=== PATIENT | male | born 1950 | race Caucasian/White ===

== ENCOUNTER 2018-04-28 07:35 | Outpatient (CLI) | payer MEDICARE, BC, SELFPAY ==
[2018-04-28 09:45] LABS: ALT 37 U/L (12-78); AST 28 U/L (15-37); Albumin 4.2 g/dL (3.4-5.0); Alkaline Phosphatase 65 U/L (46-116); Anion Gap 7.6 mmol/L (3-11); BUN 24 mg/dL (7-18); Bilirubin, Total 0.6 mg/dL (0.2-1.0); CO2 30.4 mmol/L (21.0-32.0); CREATININE 1.09 mg/dL (0.70-1.30); Calcium 9.4 mg/dL (8.5-10.1); Chloride 102 mmol/L (98-107); Cholesterol 305 mg/dL (50-200); Glucose 115 mg/dL (70-100); HDL Cholesterol 66 mg/dL (40-60); LDL CHOLESTEROL 220 mg/dL (<100); Potassium 4.4 mmol/L (3.5-5.1); Sodium 140 mmol/L (136-145); Total Protein 7.3 g/dL (6.4-8.2); Triglyceride 116 mg/dL (30-150)
[2018-05-01 08:54] LABS: PSA, Diagnostic 2.3 ng/ml (0-4.5)
== END 2018-04-28 07:55 ==
PROVIDERS: PCP Internal Medicine; Visit Provider Internal Medicine
DX: R73.9 Hyperglycemia, unspecified (principal); E78.5 Hyperlipidemia, unspecified; R35.1 Nocturia; K21.9 Gastro-esophageal reflux disease without esophagitis; H53.9 Unspecified visual disturbance
CPT/HCPCS: 36415; 80053; 80061; 83721; 84153

== ENCOUNTER → 2018-07-07 08:50 | Outpatient (BNVA) | payer MEDICARE, BC, SELFPAY | PROVIDERS: PCP Internal Medicine; Referring Provider Internal Medicine; Visit Provider Physical Therapy Assistant | DX: Z12.11 Encounter for screening for malignant neoplasm of colon (principal) ==

== ENCOUNTER 2018-07-24 09:05 | Day surgery (SDC) | payer MEDICARE, BC, SELFPAY ==
--- NOTE | 2018-07-24 07:03 | W.PM.DSUDISC ---
Discharge Plan Disposition Patient Disposition: HOME Condition: Good Discharge Details Reason For Visit: Colon Cancer screening Attending Provider: Radha Coon Primary Care Provider: Liz Sahni Home Meds and New Rx's Prescriptions: Continued pyridoxine (vitamin B6) [Vitamin B-6] 200 MG tablet extended release 200 mg PO DAILY RF: 0 aspirin [Aspir-81] 81 MG tablet,delayed release (DR/EC) 81 mg PO DAILY RF: 0 cholecalciferol (vitamin D3) 1,000 UNIT tablet 1,000 unit PO DAILY RF: 0 glucosamine [id number] 1 EACH tablet 1 ea PO DAILY RF: 0 Discontinued bisacodyl [Dulcolax (bisacodyl)] 5 mg tablet,delayed release (DR/EC) 5 mg PO ONCE Qty: 4 RF: 0 polyethylene glycol 3350 17 gram/dose powder 255 g PO ONCE Qty: 255 RF: 0 Discharge Instructions Instructions: Colonoscopy (DC) Additional Instructions: Findings: Normal bowel Follow up: 10 years Please call if you develop: fevers >101.5 Nausea or Vomiting Abdominal pain that is not transient DAY SURGERY UNIT POST COLONOSCOPY INSTRUCTIONS 1. Because there will be medication in your system for the next 24 hours, you may feel a little sleepy. Your coordination will be affected. Therefore: a. Do not drive or operate dangerous equipment for 24 hours. b. Do not drink alcohol beverages for 24 hours (not even beer). c. Plan to go home and rest for the day. 2. Generally there are no restrictions on your activity after a day or so has gone by, but you may feel a bit fatigued for a few days. 3 After you arrive home you may have a light meal and return to a normal diet as you can tolerate it without feeling sick to your stomach. 4. After surgery, you may feel pain or discomfort. This should be only transient, but if it persists please contact your doctor. 5. If there are any questions regarding the findings of your procedure, please feel free to contact your doctor. 6. If you are unable to contact your doctor with a problem, contact the hospital at [phone]. 7. Continue all your regular medications unless directed otherwise. I understand the above instructions and have no questions. Signature of Patient or Responsible Adult Escort Date/Time Name of Responsible Adult Escort Signature of Nurse Date/Time Activity:: Activity as Tolerated Diet:: As Tolerated Discharge Orders Discharge Orders: Discharge Order (Routine); Ordered 07/24/18 Ordered By: Radha Coon DS: Diagnosis Discharge Diagnosis (1) S/P colonoscopy: Status: Acute
--- NOTE | 2018-07-24 07:04 | COLE_ITS ---
Date of service: 07/24/18 Time of Service: 10: Colonoscopy Report Date of procedure: 07/24/18 Pre-op diagnosis general: Colon Cancer screening Post-op diagnosis procedure note: same Procedure: Colonoscopy Surgeon: Radha Coon Anesthesia proc note operative: MAC (Clovis Hernandez, NIYA/ ASA 2) Estimated blood loss (mL): 0 Pathology: none sent Complications: None Disposition: same day Indications: Mr. Santana is a pleasant 67 year old male who was seen in the office for a screening colonoscopy. Her last colonoscopy was in 2004 and was normal. Risks, benefits and complications have been reviewed. Complications include but are not limited to bleeding, pain, perforation, missed small lesion/polyp, sore throat, aspiration and adverse reaction to the medications. Questions were entertained and answered to their satisfaction and they wished to proceed. No guarantees were given or implied. Prep: Miralax/Dulcolax Procedure Start Time: :27 Procedure End Time: 11:00 Retraction Time: 17 minutes Findings: Normal colon. very tortuous. Procedure Description: After informed consent was obtained the patient was taken to the procedure room and placed in a left decubitous position. Monitors were applied and a time out was done. The patients name, date of , procedure, allergies to medications and metal in their body was reviewed. The patient was then sedated. Once sedated and comfortable a rectal exam was done. External exam was normal. Internal exam revealed a normal sphincter tone and no palpable masses. The prostate felt smooth. The scope was then introduced and retro-flexed. No internal hemorrhoids were id entified. The scope was then advanced to the cecum with some difficulty due to tortuousity of the transverse and ascending colon. The TI and appendiceal orifice were identified. The prep was OK. There was some bile tinged liquid stool in the right colon. This was irrigated with 1L of NS. The scope was then slowly retracted over 17 minutes back into the rectum. There were no polyps and no diverticula. The scope was removed and the patient was woken up and taken back to Same day surgery in stable condition. The patient tolerated the procedure well and there were no immediate complications. Follow up: The patient should follow up in 10 years unless they develop changes in bowel habits or other new gastrointestinal complaints.
[2018-07-24 09:23] VITALS: BP 160/85; PULSE 53; RESP 16; TEMP 35.1; O2SAT 99
[2018-07-24] MEDS: Lactated Ringers 1,000 ML 80 ML IV (10:05)
[2018-07-24 11:31] VITALS: BP 120/67; PULSE 53; RESP 16; TEMP 36.6; O2SAT 96
== END 2018-07-24 12:04 | disposition home or self-care (01) ==
LOC: SUR 09:05
PROVIDERS: PCP Internal Medicine; Visit Provider Surgery
PROC: 0DJD8ZZ Inspection of Lower Intestinal Tract, Via Natural or Artificial Opening Endoscopic (ICD-10-PCS; CPT 45378; principal; 2018-07-24 11:45)
DX: Z12.11 Encounter for screening for malignant neoplasm of colon (principal)
CPT/HCPCS: G0121

== ENCOUNTER 2019-08-03 07:08 | Outpatient (CLI) | payer MEDICARE, BC, SELFPAY ==
[2019-08-03 07:38] LABS: Abs Immature Grans 0.02 k/cumm (0.0-0.09); Absolute Basophil Count 0.12 k/cumm (0.0-0.2); Absolute Lymphocyte Count 1.82 k/cumm (1.2-3.4); Absolute Monocyte Count 0.55 k/cumm (0.11-0.7); Absolute Neutrophil Count 2.98 k/cumm (1.2-6.7); Basophils % 2.1; Eosinophils % 1.8; HCT 44.1 % (40.0-50.0); HGB 15.2 g/dL (13.5-17.5); Immature Grans % 0.4 %; Lymphocytes % 32.6; Mean Corp. HGB Concentration 34.5 g/dL (32.0-36.0); Mean Corpuscular Volume 89.8 fL (80-95); Mean Platelet Volume 9.9 fL (8.0-11.0); Monocytes % 9.8; Neutrophils % 53.3; Platelet Count 268 x1000/uL (130-400); RBC 4.91 m/cumm (4.50-6.00); RBC Distribution Width 13.5 % (11.8-14.1); White Blood Cell Count 5.59 k/cumm (4.4-10.8)
[2019-08-03 08:30] LABS: ALT 48 U/L (16-63); AST 25 U/L (15-37); Albumin 4.2 g/dL (3.4-5.0); Alkaline Phosphatase 69 U/L (46-116); Anion Gap 8.5 mmol/L (3-11); BUN 17 mg/dL (7-18); Bilirubin, Total 0.6 mg/dL (0.2-1.0); CO2 28.5 mmol/L (21.0-32.0); CREATININE 1.06 mg/dL (0.70-1.30); Calcium 9.2 mg/dL (8.5-10.1); Calculated LDL 120 mg/dL (<100); Chloride 104 mmol/L (98-107); Cholesterol 197 mg/dL (<200); Glucose 114 mg/dL (74-106); HDL Cholesterol 53 mg/dL (40-60); Potassium 4.4 mmol/L (3.5-5.1); Sodium 141 mmol/L (136-145); Total Protein 7.3 g/dL (6.4-8.2); Triglyceride 120 mg/dL (<150)
[2019-08-06 11:21] LABS: PSA, Screening 2.3 ng/mL (0.0-4.5)
== END 2019-08-03 07:28 ==
PROVIDERS: PCP Internal Medicine; Visit Provider Internal Medicine
DX: E78.5 Hyperlipidemia, unspecified (principal); R35.1 Nocturia; R50.9 Fever, unspecified; Z12.5 Encounter for screening for malignant neoplasm of prostate
CPT/HCPCS: 36415; 80053; 80061; 84153; 85025

== ENCOUNTER 2020-04-30 03:07 | Outpatient (CLI) | payer MEDICARE, BC, SELFPAY ==
[2020-05-02 12:57] LABS: COVID-19 RT-PCR Result NEGATIVE (Negative)
== END 2020-04-30 03:27 ==
PROVIDERS: PCP Nurse Practitioner; Visit Provider Nurse Practitioner
DX: Z11.59 Encounter for screening for other viral diseases (principal)
CPT/HCPCS: U0003

== ENCOUNTER 2020-05-12 01:48 | Outpatient (CLI) | payer MEDICARE, BC, SELFPAY ==
[2020-05-12 08:13] LABS: Hemoglobin A1C 5.7 % (<5.7)
[2020-05-12 08:36] LABS: CREATININE 1.26 mg/dL (0.70-1.30); Calculated LDL 109 mg/dL (<100); Cholesterol 197 mg/dL (<200); Estimated GFR 57.08 (mL/min/1.73m2); HDL Cholesterol 47 mg/dL (40-60); Potassium 4.6 mmol/L (3.5-5.1); Triglyceride 208 mg/dL (<150)
== END 2020-05-12 02:08 ==
PROVIDERS: PCP Nurse Practitioner; Visit Provider Nurse Practitioner
DX: R73.03 Prediabetes (principal); E78.5 Hyperlipidemia, unspecified; I10 Essential (primary) hypertension; D44.7 Neoplasm of uncertain behavior of aortic body and other paraganglia
CPT/HCPCS: 36415; 80061; 82565; 83036; 84132

== ENCOUNTER 2020-11-03 04:48 | Outpatient (CLI) | payer MEDICARE, BC, SELFPAY ==
[2020-11-03 07:50] LABS: Hemoglobin A1C 5.8 % (<5.7)
[2020-11-03 17:21] LABS: PSA, Screening 1.7 ng/mL (0.0-4.5)
== END 2020-11-03 04:49 | disposition home or self-care (01) ==
LOC: LBO 04:48
PROVIDERS: PCP Nurse Practitioner; Visit Provider Nurse Practitioner
DX: R73.03 Prediabetes (principal); R35.1 Nocturia; Z79.01 Long term (current) use of anticoagulants
CPT/HCPCS: 36415; 84153; 83036

== ENCOUNTER 2021-06-08 03:43 | Outpatient (CLI) | payer MEDICARE, SELFPAY ==
[2021-06-08 08:55] LABS: Anion Gap 8.6 mmol/L (3-11); BUN 23 mg/dL (7-18); CO2 29.4 mmol/L (21.0-32.0); CREATININE 1.1 mg/dL (0.70-1.30); Calcium 9.4 mg/dL (8.5-10.1); Calculated LDL 105 mg/dL (<100); Chloride 103 mmol/L (98-107); Cholesterol 188 mg/dL (<200); Glucose 119 mg/dL (74-106); HDL Cholesterol 59 mg/dL (40-60); Potassium 4.7 mmol/L (3.5-5.1); Sodium 141 mmol/L (136-145); Triglyceride 123 mg/dL (<150)
== END 2021-06-08 03:44 | disposition home or self-care (01) ==
LOC: LBO 03:46
PROVIDERS: PCP Nurse Practitioner; Visit Provider Nurse Practitioner
DX: I10 Essential (primary) hypertension (principal)
CPT/HCPCS: 36415; 80048; 80061

== ENCOUNTER → 2021-10-13 18:49 | Outpatient (CLI) | payer MEDICARE, SELFPAY ==
--- NOTE | 2021-10-13 09:00 | DI.US_ITS ---
Exam(s) US LOWER EXTREMITY VENOUS RT EXAM: US LOWER EXTREMITY VENOUS RT CLINICAL HISTORY: r/o dvt, edema, R60.9 TECHNIQUE: Grayscale, color, and doppler imaging of the deep venous system of the right lower extrem ity was performed. COMPARISON: No exams were available for comparison FINDINGS: There is no evidence of intraluminal thrombus and there is normal compression and augmentation demons trated within the common femoral vein, femoral vein, and popliteal vein. In the ipsilateral calf the interrogated veins also exhibit normal compression/ augmentation properti es. The ipsilateral saphenofemoral junction is patent. IMPRESSION: 1. No evidence of DVT in the RIGHT lower extremity. 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 DATA REPOSITORY:
== END ==
PROVIDERS: PCP Nurse Practitioner; Visit Provider Nurse Practitioner
DX: R60.0 Localized edema (principal); M71.21 Synovial cyst of popliteal space [Baker], right knee
CPT/HCPCS: 93971

== ENCOUNTER 2022-06-07 03:28 | Outpatient (CLI) | payer MEDICARE, SELFPAY ==
[2022-06-07 09:01] LABS: HCT 42.7 % (40.0-50.0); HGB 14.2 g/dL (13.5-17.5); MCH 29.8 pg (27.0-33.0); MCHC 33.3 % (32.0-36.0); MCV 90 fL (80-95); MPV 9.5 fL (8.0-11.0); Platelet Count 305 10^3/uL (130-400); RBC 4.77 10^6/uL (4.36-5.78); RDW 12.4 % (11.8-14.1); RDW-SD 41.3 fL
[2022-06-07 10:14] LABS: ALT 37 U/L (16-63); AST 27 U/L (15-37); Albumin 4.3 g/dL (3.4-5.0); Alkaline Phosphatase 100 U/L (46-116); Anion Gap 8.4 mmol/L (3-11); BUN 19 mg/dL (7-18); Bilirubin, Total 0.4 mg/dL (0.2-1.0); CO2 27.6 mmol/L (21.0-32.0); CREATININE 1.2 mg/dL (0.70-1.30); Calcium 9.4 mg/dL (8.5-10.1); Calculated LDL 79 mg/dL (<100); Chloride 105 mmol/L (98-107); Cholesterol 158 mg/dL (<200); Estimated GFR 65.46 (mL/min/1.73m2); Glucose 120 mg/dL (74-106); HDL Cholesterol 63 mg/dL (40-60); Potassium 4.3 mmol/L (3.5-5.1); Sodium 141 mmol/L (136-145); Total Protein 7.9 g/dL (6.4-8.2); Triglyceride 80 mg/dL (<150)
[2022-06-07 23:00] LABS: PSA, Screening 1.7 ng/mL (<=4.5)
== END 2022-06-07 03:29 | disposition home or self-care (01) ==
PROVIDERS: PCP Nurse Practitioner Family; Visit Provider Nurse Practitioner Family
DX: E78.5 Hyperlipidemia, unspecified (principal); I10 Essential (primary) hypertension; I73.00 Raynaud's syndrome without gangrene; K21.9 Gastro-esophageal reflux disease without esophagitis; R73.03 Prediabetes; Z00.00 Encounter for general adult medical examination without abnormal findings; R60.0 Localized edema; R35.1 Nocturia; Z12.5 Encounter for screening for malignant neoplasm of prostate
CPT/HCPCS: 36415; 80053; 80061; 84153; 85027; 83036; 84443

== ENCOUNTER 2023-05-10 14:05 | Outpatient (CLI) | payer MEDICARE, SELFPAY ==
--- NOTE | 2023-05-10 09:15 | DI.RAD_ITS ---
Exam(s) XR SHOULDER RT COMPLETE 2+V EXAM: XR SHOULDER RT COMPLETE 2+V CLINICAL HISTORY: RIGHT SHOULDER PAIN. TECHNIQUE: 2D digital imaging was performed. Two views. COMPARISON: No exams were available for comparison FINDINGS: Exam somewhat limited by overlying clothing. BONES: No acute fracture is present. No bony destructive lesion is seen. JOINTS: No dislocation present. Glenohumeral joint space is maintained. AC joint not optimally seen . No obvious spurring. SOFT TISSUE: Normal. IMPRESSION: Somewhat limited exam. No acute abnormality. DATA REPOSITORY: RADIATION DOSE DELIVERED:
== END 2023-05-10 14:06 | disposition home or self-care (01) ==
LOC: DIORS 14:05
PROVIDERS: PCP Nurse Practitioner Family; Referring Provider Nurse Practitioner Family; Visit Provider Student in an Organized Health Care Education/Training Program
DX: M25.511 Pain in right shoulder (principal); M75.51 Bursitis of right shoulder
CPT/HCPCS: 20610; 99203; 73030; J1030

== ENCOUNTER 2023-06-07 04:03 | Outpatient (CLI) | payer MEDICARE, SELFPAY ==
[2023-06-07 16:11] LABS: Anion Gap 6.6 mmol/L (3-11); BUN 19 mg/dL (7-18); CO2 31.4 mmol/L (21.0-32.0); CREATININE 1.2 mg/dL (0.70-1.30); Calcium 9.4 mg/dL (8.5-10.1); Calculated LDL 82 mg/dL (<100); Chloride 104 mmol/L (98-107); Cholesterol 173 mg/dL (<200); Estimated GFR 65.06 (mL/min/1.73m2); Glucose 96 mg/dL (74-106); HDL Cholesterol 60 mg/dL (40-60); Potassium 4.2 mmol/L (3.5-5.1); Sodium 142 mmol/L (136-145); Triglyceride 157 mg/dL (<150)
== END 2023-06-07 04:04 | disposition home or self-care (01) ==
LOC: LBO 04:03
PROVIDERS: PCP Nurse Practitioner Family; Visit Provider Nurse Practitioner Family
DX: E78.5 Hyperlipidemia, unspecified (principal); I10 Essential (primary) hypertension; I73.00 Raynaud's syndrome without gangrene; K21.9 Gastro-esophageal reflux disease without esophagitis; R73.03 Prediabetes; Z00.00 Encounter for general adult medical examination without abnormal findings
CPT/HCPCS: 36415; 80048; 80061; 83036

== ENCOUNTER → 2023-08-09 08:37 | Outpatient (BNVA) | payer MEDICARE, SELFPAY | PROVIDERS: PCP Nurse Practitioner Family; Referring Provider Nurse Practitioner Family; Visit Provider Student in an Organized Health Care Education/Training Program | DX: M75.101 Unspecified rotator cuff tear or rupture of right shoulder, not specified as traumatic (principal); M75.51 Bursitis of right shoulder | CPT/HCPCS: 99213 ==

== ENCOUNTER → 2023-08-25 04:14 | Outpatient (CLI) | payer MEDICARE, SELFPAY ==
--- NOTE | 2023-08-25 06:30 | DI.MRI_ITS ---
Exam(s) MR UPPER JOINT RT WO EXAM: MR UPPER JOINT RT WO CLINICAL HISTORY: R SHOULDER PAIN,rt rotator cuff tear,bursitis,m75.51,m75.101. TECHNIQUE: Multiplanar multisequence MRI was performed. COMPARISON: CR XR SHOULDER RT COMPLETE 2+V from 05/10/2023 FINDINGS: BONES: There is no fracture or contusion pattern. JOINTS: Mild degenerative changes are seen at the acromioclavicular joint. There is thinning of the articular cartilage at the glenohumeral joint with joint space narrowing. TENDONS: Supraspinatus: There is tendinosis of the supraspinatus tendon without evidence of a full-thickness r otator cuff tear. Infraspinatus: Unremarkable. Subscapularis: Unremarkable. Teres Minor: Unremarkable. Biceps and [place]: Unremarkable. MUSCLES: There is mild fatty atrophy of the teres minor muscle. No evidence of a soft tissue mass is appreciated. GLENOID LABRUM: There is degeneration seen in the superior labrum. SOFT TISSUES: Unremarkable. LIGAMENTS: Unremarkable. OTHER: Subacromial and subdeltoid bursae are unremarkable. IMPRESSION: 1. Tendinosis of the supraspinatus tendon without evidence of a rotator cuff tear. 2. Degeneration of the superior labrum. 3. Mild fatty atrophy of the teres minor muscle. No evidence of a soft tissue mass. 4. Mild degenerative changes seen at the acromioclavicular joint in the humeral head. DATA REPOSITORY:
== END ==
PROVIDERS: PCP Nurse Practitioner Family; Visit Provider Student in an Organized Health Care Education/Training Program
DX: M75.101 Unspecified rotator cuff tear or rupture of right shoulder, not specified as traumatic (principal); M75.51 Bursitis of right shoulder
CPT/HCPCS: 73221

== ENCOUNTER → 2023-08-30 08:03 | Outpatient (BNVA) | payer MEDICARE, SELFPAY | PROVIDERS: PCP Nurse Practitioner Family; Referring Provider Nurse Practitioner Family; Visit Provider Psychiatry & Neurology Neurology | DX: G62.9 Polyneuropathy, unspecified (principal) | CPT/HCPCS: 99215 ==

== ENCOUNTER → 2023-08-31 08:47 | Outpatient (BNVA) | payer MEDICARE, SELFPAY | PROVIDERS: PCP Nurse Practitioner Family; Referring Provider Nurse Practitioner Family; Visit Provider Podiatrist | DX: L60.0 Ingrowing nail (principal); M79.671 Pain in right foot | CPT/HCPCS: 11750; 99203; 99214 ==

== ENCOUNTER → 2023-08-31 11:06 | Outpatient (BNVA) | payer MEDICARE, SELFPAY | PROVIDERS: PCP Nurse Practitioner Family; Referring Provider Nurse Practitioner Family; Visit Provider Student in an Organized Health Care Education/Training Program | DX: M19.011 Primary osteoarthritis, right shoulder (principal) | CPT/HCPCS: 99213 ==

== ENCOUNTER 2023-09-01 04:59 | Outpatient (CLI) | payer MEDICARE, SELFPAY ==
[2023-09-01 14:53] LABS: Vitamin B12 638 pg/mL (193-986)
[2023-09-02 12:30] LABS: Albumin 64.7 % (55.8-66.1); Albumin g/dL 4.8 g/dL (3.6-5.2); Total Protein 7.4 g/dL (6.3-8.2)
[2023-09-06 09:30] LABS: Pyridoxal 5-Phosphate (PLP), P 92 mcg/L (5-50)
== END 2023-09-01 05:00 | disposition home or self-care (01) ==
LOC: LBO 05:00
PROVIDERS: PCP Nurse Practitioner Family; Visit Provider Psychiatry & Neurology Neurology
DX: G62.9 Polyneuropathy, unspecified (principal)
CPT/HCPCS: 36415; 82607; 84165; 84207

== ENCOUNTER → 2023-09-21 13:11 | Outpatient (BNVA) | payer MEDICARE, SELFPAY | PROVIDERS: PCP Nurse Practitioner Family; Referring Provider Nurse Practitioner Family; Visit Provider Podiatrist | DX: L60.0 Ingrowing nail; M79.671 Pain in right foot; B35.3 Tinea pedis; L84 Corns and callosities | CPT/HCPCS: 99214 ==

== ENCOUNTER 2024-01-05 01:53 | Outpatient (CLI) | payer MEDICARE, SELFPAY ==
[2024-01-10 13:20] LABS: Pyridoxal 5-Phosphate (PLP), P 24 mcg/L (5-50)
== END 2024-01-05 01:54 | disposition home or self-care (01) ==
PROVIDERS: PCP Nurse Practitioner Family; Visit Provider Psychiatry & Neurology Neurology
DX: G62.9 Polyneuropathy, unspecified (principal); E67.8 Other specified hyperalimentation
CPT/HCPCS: 36415; 84207

== ENCOUNTER → 2024-01-18 14:21 | Outpatient (BNVA) | payer MEDICARE, SELFPAY | PROVIDERS: PCP Nurse Practitioner Family; Referring Provider Nurse Practitioner Family; Visit Provider Podiatrist | DX: L84 Corns and callosities (principal); B35.3 Tinea pedis; R20.0 Anesthesia of skin; R20.2 Paresthesia of skin; G62.9 Polyneuropathy, unspecified; M76.822 Posterior tibial tendinitis, left leg | CPT/HCPCS: 99213 ==

== ENCOUNTER 2024-02-13 04:52 | Outpatient (CLI) | payer MEDICARE, SELFPAY ==
[2024-02-13] MEDS: Levalbuterol HFA 15 GM INH 4 PUFF IH (10:12)
[2024-02-13] MEDS: Inhaler, Assist Device 1 EACH MC (10:13)
--- NOTE | 2024-02-14 18:19 | W.PFT ---
Date of service: 02/13/24 Time of Service: 07:57 Pulmonary Function Test Result Requesting Provider Sofia Ruano Indications: Rule out COPD, former [id number] smoker. Prior laryngeal surgery, possible asbestos exposure, increased dyspnea since COVID 1.5 years ago Interpretation Spirometry: Spirometry pre and postbronchodilator were normal. 1. No evidence of airway obstruction. This rules out COPD. 2. No response to bronchodilator. 3. Director Business Integration comments indicated a good patient effort 4. The test met [place] [employer] standards of spirometry. Lung Volumes: Lung volume studies by plethysmography show: 1. No evidence of restriction. 2. Borderline hyperinflation is indicated by an RV/TLC of 122% predicted. This may be a physiologic variant. 3. Nonspecific mild decrease in expiratory reserve volume, unlikely to be of clinical significance. Diffusion Capacity: Diffusing capacity by single breath carbon monoxide technique showed: 1. Mildly decreased gas exchange, which normalized when adjusted for lung volumes. Impression Normal pulmonary function test, with the exception of gas exchange at the lower limit of normal. Clinical and radiographic correlation is recommended. Consider a follow-up pulmonary function test in 6 months to monitor trends. There is no prior pulmonary function test on record for comparison at [facility].
== END 2024-02-14 23:59 | disposition home or self-care (01) ==
LOC: RT 04:52
PROVIDERS: PCP Nurse Practitioner Family; Visit Provider Nurse Practitioner Family
DX: R07.89 Other chest pain (principal); Z87.891 Personal history of nicotine dependence; Z86.16 Personal history of COVID-19
CPT/HCPCS: 00123; 94060; 94726; 94729

== ENCOUNTER 2024-03-05 00:42 | Outpatient (CLI) | payer MEDICARE, SELFPAY ==
--- NOTE | 2024-03-05 07:00 | DI.NM_ITS ---
APPROVED REPORT Exam: Exercise Treadmill Patient Location: Out-Patient Room/Bed: Stress Nurse: Katlyn Cagle RN Ordering Provider:ANASTACIO AGUIRRE, Contact Number: [phone] BMI: 26.95 Baseline Rhythm: Sinus Rhythm Indications: Chest pressure, h/o tobacco use, chronic dyspnea, Medical History Medical History: Hx. tobacco use, paraganglioma, chronic dyspnea, P.N., HTN, raynauds disease, HLD, G ERD Cardiac Medications: Aspirin, felodipine, omeprazole, rosuvastatin Allergies: Atorvastatin Cardiac Risk Factors: Prediabetes, HTN, HLD, PVD, previous smoker Previous Cardiac Procedures: None Pretest Chest Pain Characteristics: None Exercise History: Physically active Physical Disabilities: None Lung Sounds: Clear to auscultation Heart Sounds: Regular Stress Test Details Test: Exercise stress testing was performed using a Campos protocol. Nuclear Acquisition: Rest Tc-99m/Stress Tc-99m 1 day Rest Isotope: Tc-99m Sestamibi. Dose: 10.9 Date: 03/05/2024 Injection Time: 0825 Stress Isotope: Tc-99m Sestamibi. Dose: 31.8 Date: 03/05/2024 Injection Time: 0950 HR Resting HR Supine: 68 bpm Max Heart Rate (APMHR): 149.799146 bpm Resting HR Standin bpm Target HR (85% APMHR): 126.811528 bpm Max HR Achieved: 136 bpm % of APMHR: 91.28 Recovery HR: 78 bpm HR response to stress: Normal HR response to stress BP Resting BP Supine: 162/100 mmHg Resting BP Standin/92 mmHg Max BP: 190/80 mmHg Recovery BP: 160/88 mmHg BP response to stress: Normal blood pressure response to stress. ECG Resting ECG: Sinus Rhythm Stress ECG: Sinus Tachycardia ST Change: No significant ST segment changes noted Arrhythmia: Occasional PVC's, occasional PAC's Recovery ECG: Sinus Rhythm Recovery ST Change: No significant ST segment changes noted Comment: Occasional PAC's, occasional PVC's Clinical Reason for Termination: Target HR Achieved Stress Symptoms: None Exercise duration: 08 min14 sec Highest Stage Reached: Stage 3: 3.4 mph at 14% grade. Exercise capacity: 10.16 METs Angina Score: None Mijares Treadmill Score: 7.2 Rate Pressure Product: [id number] Stress ECG Conclusion 1. Resting electrocardiogram showed low voltage 2. Patient exercised on the Campos protocol and completed workload of 10 METS 3. Normal heart rate and blood pressure response to exercise. The patient achieved 91% of predicted heart rate for age 4. There was no electrocardiographic evidence of myocardial ischemia 5. There were no significant dysrhythmias 6. See MPI report Mijares Treadmill Score is 7.2 which is Low risk. Stress Test Summary STAGE Time (mins) Speed (mph) Grade (%) HR BP SpO2 SYMPTOMS METS Supine 68 162/100 96% Standing 75 142/92 1 3 1.7 10 106 174/78 4.5 2 6 2.5 12 120 180/78 7 3 9 3.4 14 136 10 1 min recovery 121 188/70 97% Occasional PVC's and PAC's 3 min recovery 90 190/80 6 min recovery 78 160/88 97% MPI Conclusion Myocardial perfusion is normal. There is no ischemia or evidence of prior infarction Ejection fraction is 53%. Wall motion is normal Radiologist Interpretation Radiologist agrees with Junior Database Administrator's Interpretation. Radiologist Interpretation by: Sanjiv Molina MD Interpretation Date/Time: 03/05/2024 17:13:16
== END 2024-03-05 01:02 ==
LOC: DI 00:43
PROVIDERS: PCP Nurse Practitioner Family; Visit Provider Nurse Practitioner Family
DX: R07.89 Other chest pain (principal); R06.09 Other forms of dyspnea; Z87.891 Personal history of nicotine dependence
CPT/HCPCS: 78452; 93017

== ENCOUNTER 2024-06-12 03:47 | Outpatient (CLI) | payer MEDICARE, SELFPAY ==
[2024-06-12 15:56] LABS: HGB 14.6 g/dL (13.5-17.5); MCH 30.3 pg (27.0-33.0); MCHC 33.2 % (32.0-36.0); MCV 91 fL (80-95); MPV 9.6 fL (8.0-11.0); Platelet Count 293 10^3/uL (130-400); RBC 4.82 10^6/uL (4.36-5.78); RDW 12.8 % (11.8-14.1); RDW-SD 42.7 fL; WBC 7.03 10^3/uL (4.4-10.8)
[2024-06-12 16:03] LABS: Hemoglobin A1C 6.2 % (<5.7)
[2024-06-12 17:34] LABS: ALT 34 U/L (16-63); AST 21 U/L (15-37); Albumin 4.3 g/dL (3.4-5.0); Alkaline Phosphatase 100 U/L (46-116); Anion Gap 9.2 mmol/L (3-11); BUN 23 mg/dL (7-18); Bilirubin, Total 0.28 mg/dL (0.2-1.0); CO2 28.8 mmol/L (21.0-32.0); CREATININE 1.3 mg/dL (0.70-1.30); Calcium 9.7 mg/dL (8.5-10.1); Calculated LDL 69 mg/dL (<100); Chloride 105 mmol/L (98-107); Cholesterol 175 mg/dL (<200); Estimated GFR 58.73 (mL/min/1.73m2); Glucose 105 mg/dL (74-106); HDL Cholesterol 52 mg/dL (40-60); Potassium 3.9 mmol/L (3.5-5.1); Sodium 143 mmol/L (136-145); Total Protein 7.8 g/dL (6.4-8.2); Triglyceride 273 mg/dL (<150)
== END 2024-06-12 03:48 | disposition home or self-care (01) ==
LOC: LBO 03:47
PROVIDERS: PCP Nurse Practitioner Family; Visit Provider Nurse Practitioner Family
DX: I10 Essential (primary) hypertension (principal); Z00.00 Encounter for general adult medical examination without abnormal findings; E78.5 Hyperlipidemia, unspecified; E11.9 Type 2 diabetes mellitus without complications; K21.9 Gastro-esophageal reflux disease without esophagitis
CPT/HCPCS: 36415; 80053; 80061; 85027; 83036